=== PATIENT | female | born 1975 | race Caucasian/White ===

== ENCOUNTER → 2021-09-01 16:50 | Outpatient (BNVA) | payer MEDICAID, SELFPAY | PROVIDERS: Visit Provider Family Medicine | DX: Z87.898 Personal history of other specified conditions (principal); K22.9 Disease of esophagus, unspecified; E11.42 Type 2 diabetes mellitus with diabetic polyneuropathy; E78.5 Hyperlipidemia, unspecified; I10 Essential (primary) hypertension; M79.7 Fibromyalgia | CPT/HCPCS: 80053; 80061; 83036; 83721; 84443; 85025 ==

== ENCOUNTER → 2021-10-15 08:57 | Outpatient (BNVA) | payer MEDICARE, SELFPAY | PROVIDERS: Visit Provider Surgery | DX: Z20.822 Contact with and (suspected) exposure to COVID-19 (principal); Z01.812 Encounter for preprocedural laboratory examination | CPT/HCPCS: 87635 ==

== ENCOUNTER 2021-10-20 06:00 | Day surgery (SDC) | payer MEDICARE, SELFPAY ==
[2021-10-15 11:49] VITALS: BMI 29.0
[2021-10-20 06:18] VITALS: BP 156/116; PULSE 86; RESP 18; O2SAT 100
[2021-10-20] MEDS: sodium chloride 0.9% 1,000 ML 30 ML IV (06:30)
--- NOTE | 2021-10-20 06:33 | P.ANESASSM_ITS ---
Pre-Anesthetic Assessment Height/Weight: Height 1.68 m Weight 81.647 kg Pulse Resp BP Pulse Ox 86 18 156/116 100 10/20/21 06:18 10/20/21 06:18 10/20/21 06:18 10/20/21 06:18 Preop Diagnosis: upper gi symptoms Operation Date: 10/20/21 07:00 Proposed Procedures p EGD/Colon 68714 R07.9(Not Applicable) - Federico Palomino MD s Colonoscopy 13242 K63.5(Not Applicable) - Federico Palomino MD Familial anesthetic complications: none Last intake: Intake Last Liquid Date 10/19/21 Last Liquid Time 19:00 Last Solid Date 10/18/21 Last Solid Time 06:30 Social No alcohol and No tobacco Airway Submandibular: within normal limits Mallampati: Class II Dentition: false Pulmonary Asthma CV/HEM Hypertension None reported Hepatic None reported GI Gastroesophageal Reflux Disease post gastric bypass 2016 Metabolic Diabetes Mellitus and Hyperlipidemia [facility] [place] Fibromyalgia Neuropsych Headache Anesthetic Plan ASA status: 3 Anesthesia: MAC Medications/Allergies Home Medications Medication Instructions Recorded Confirmed Last Taken Type dicyclomine 20 mg tablet 20 mg PO QID 09/01/21 10/20/21 10/20/21 History lisinopril 20 mg tablet 20 mg PO DAILY #30 tab 09/01/21 10/20/21 10/20/21 Rx metoprolol tartrate 25 mg tablet 25 mg PO BID 09/01/21 10/20/21 10/20/21 History milnacipran 12.5 mg (5)-25 See Rx Instructions PO PER PKG DIR 09/01/21 10/20/21 10/20/21 Rx mg(8)-50mg(42) tablets in a dose #55 ea pack (Savella) rosuvastatin 20 mg tablet 20 mg PO DAILY 09/01/21 10/20/21 10/19/21 History sucralfate 1 gram tablet (Carafate) 1 g PO QID #120 tab 09/01/21 10/20/21 10/20/21 Rx fenofibrate 160 mg tablet 160 mg PO DAILY #30 tab 09/08/21 10/20/21 10/19/21 Rx metformin 1,000 mg tablet 1,000 mg PO BID #60 tab 10/05/21 10/20/21 10/20/21 Rx omeprazole 40 mg capsule,delayed 40 mg PO BID #60 cap 10/05/21 10/20/21 10/19/21 Rx release milnacipran 50 mg tablet (Savella) 50 mg PO BID #60 tab 10/06/21 10/20/21 10/20/21 Rx Allergies Allergy/AdvReac Type Severity Reaction Status Date / Time pregabalin [From Lyrica] Allergy Severe anaphylaxis Verified 10/20/21 06:14 amitriptyline Allergy Mild hives Verified 10/20/21 06:14 gabapentin Allergy Mild hives Verified 10/20/21 06:14 methocarbamol [From Robaxin] Allergy Mild hives Verified 10/20/21 06:14 morphine Allergy Mild hives Verified 10/20/21 06:14 ferric carboxymaltose Allergy rapid Verified 10/20/21 06:14 heart rate, difficulty breathing sulfamethoxazole AdvReac Intermediate vomiting Verified 10/20/21 06:14 [From Bactrim] trimethoprim [From Bactrim] AdvReac Intermediate vomiting Verified 10/20/21 06:14 Current Medications Generic Name Dose Route Start Last Admin Trade Name Freq PRN Reason Stop Dose Admin Sodium Chloride 1,000 mls @ 30 mls/hr 10/20/21 06:15 10/20/21 06:30 Sodium Chloride 0.9% IV 10/21/21 06:14 30 mls/hr .Q24H CRISTIANA Administration PFSH Anesthesia Medical History (Updated 09/14/21 @ 12:08 by Federico Palomino MD) Colon polyps Essential hypertension Fibromyalgia Hyperlipidemia Type 2 diabetes mellitus with diabetic polyneuropathy Surgical History (Updated 09/14/21 @ 12:08 by Federico Palomino MD) History of bilateral carpal tunnel release Right hand 2x, Left hand 3x History of colonoscopy History of decompression of ulnar nerve History of esophagogastroduodenoscopy (EGD) History of gastric bypass History of hysterectomy History of left knee surgery History of lumbar surgery S/P trigger finger release Social History Smoking and tobacco status: never smoked Second hand smoke exposure: No Alcohol intake: never Lives independently: No Household members: spouse Marital status: Current occupational status: employed Current occupation: [employer] Current gender identity: Female Special maye needs: No Data Anesthesia Cardiac Studies: No Data to Display
--- NOTE | 2021-10-20 07:01 | P.HP_ITS ---
Same Day Surgery H&P Indication for Procedure/HPI DATE OF PROCEDURE: October 20, 2021 CHIEF COMPLAINT/INDICATIONFOR SURGICAL PROCEDURE: screening PREOP DIAGNOSIS: upper gi symptoms PLANNED PROCEDURE: Operation Date: 10/20/21 07:00 Proposed Procedures p EGD/Colon 86983 R07.9(Not Applicable) - Federico Palomino MD s Colonoscopy 61923 K63.5(Not Applicable) - Federico Palomino MD Medications/Allergies* Home Medications Medication Instructions Recorded Confirmed Type dicyclomine 20 mg tablet 20 mg PO QID 09/01/21 10/20/21 History metoprolol tartrate 25 mg tablet 25 mg PO BID 09/01/21 10/20/21 History rosuvastatin 20 mg tablet 20 mg PO DAILY 09/01/21 10/20/21 History Allergies/Adverse Reactions Allergy/AdvReac Type Severity Reaction Status Date / Time pregabalin [From Lyrica] Allergy Severe anaphylaxis Verified 10/20/21 06:14 amitriptyline Allergy Mild hives Verified 10/20/21 06:14 gabapentin Allergy Mild hives Verified 10/20/21 06:14 methocarbamol [From Robaxin] Allergy Mild hives Verified 10/20/21 06:14 morphine Allergy Mild hives Verified 10/20/21 06:14 ferric carboxymaltose Allergy rapid Verified 10/20/21 06:14 heart rate, difficulty breathing sulfamethoxazole AdvReac Intermediate vomiting Verified 10/20/21 06:14 [From Bactrim] trimethoprim [From Bactrim] AdvReac Intermediate vomiting Verified 10/20/21 06:14 Current Medications: Generic Name Dose Route Start Last Admin Trade Name Freq PRN Reason Stop Dose Admin Sodium Chloride 1,000 mls @ 30 mls/hr 10/20/21 06:15 10/20/21 06:30 Sodium Chloride 0.9% IV 10/21/21 06:14 30 mls/hr .Q24H CRISTIANA Administration Pertinent History/Comorbid Conditions* Medical History (Updated 09/14/21 @ 12:08 by Federico Palomino MD) Colon polyps Essential hypertension Fibromyalgia Hyperlipidemia Type 2 diabetes mellitus with diabetic polyneuropathy Surgical History (Updated 09/14/21 @ 12:08 by Federico Palomino MD) History of bilateral carpal tunnel release Right hand 2x, Left hand 3x History of colonoscopy History of decompression of ulnar nerve History of esophagogastroduodenoscopy (EGD) History of gastric bypass History of hysterectomy History of left knee surgery History of lumbar surgery S/P trigger finger release Social History Smoking and tobacco status: never smoked Second hand smoke exposure: No Alcohol intake: never Lives independently: No Household members: spouse Marital status: Current occupational status: employed Current occupation: [employer] Current gender identity: Female Special maye needs: No Pertinent Exam Findings alert, oriented x 3 and regular rate & rhythm Recommendations Surgery/Procedure today Coding Level of Care Code Acute Event Sales Representative for Virla Zavala
[2021-10-20 07:26] VITALS: BP 120/79; PULSE 78; RESP 12; TEMP 36.2; O2SAT 98
[2021-10-20 07:40] VITALS: BP 132/84; PULSE 79; RESP 18; O2SAT 99
--- NOTE | 2021-10-20 08:48 | ANE.PACU2 ---
Inpatient post-anesthesia follow up: Airway intact: Yes Vital signs: Temperature 97.1 F Pulse Rate 79 Respiratory Rate 18 Blood Pressure 132/84 Pulse Oximetry 99 Oxygen Delivery Me thod Room Air Oxygen Flow Rate 3 Fraction of Inspir ed Oxygen Hydration adequate: Yes Nausea and vomiting: No Pain level: 1 Mental status: Baseline
== END 2021-10-20 07:58 | disposition home or self-care (01) ==
PROVIDERS: PCP Family Medicine; Visit Provider Surgery
PROC: 0DJ08ZZ Inspection of Upper Intestinal Tract, Via Natural or Artificial Opening Endoscopic (ICD-10-PCS; CPT 43235; principal; 2021-10-20 07:00)
PROC: 0DJD8ZZ Inspection of Lower Intestinal Tract, Via Natural or Artificial Opening Endoscopic (ICD-10-PCS; CPT 45378; 2021-10-20 07:00)
DX: Z12.11 Encounter for screening for malignant neoplasm of colon (principal); D12.4 Benign neoplasm of descending colon; D12.3 Benign neoplasm of transverse colon; K57.30 Diverticulosis of large intestine without perforation or abscess without bleeding; R07.9 Chest pain, unspecified; I10 Essential (primary) hypertension; M79.7 Fibromyalgia; E78.5 Hyperlipidemia, unspecified; E11.42 Type 2 diabetes mellitus with diabetic polyneuropathy; Z98.84 Bariatric surgery status; J45.909 Unspecified asthma, uncomplicated; K21.9 Gastro-esophageal reflux disease without esophagitis; E11.9 Type 2 diabetes mellitus without complications
CPT/HCPCS: 45380; 88305; J2704; J7030

== ENCOUNTER → 2021-11-30 12:25 | Outpatient (BNVA) | payer MEDICARE, SELFPAY | PROVIDERS: PCP Family Medicine; Visit Provider Family Medicine | DX: L65.9 Nonscarring hair loss, unspecified (principal); R53.83 Other fatigue; Z86.2 Personal history of diseases of the blood and blood-forming organs and certain disorders involving the immune mechanism; R10.9 Unspecified abdominal pain | CPT/HCPCS: 82306; 82607; 83540; 84443; 85025 ==

== ENCOUNTER 2021-12-06 06:36 | Outpatient (CLI) | payer MEDICARE, SELFPAY ==
--- NOTE | 2021-12-06 07:00 | US_ITS ---
WS: [id number] RIGHT UPPER QUADRANT ULTRASOUND HISTORY: R10.13 - Epigastric pain COMPARISON: None available. Liver: 18.9 cm in length. Moderately enlarged liver. Moderate coarse echotexture throughout and dong es of hepatic steatosis. No bile duct dilatation is evident. Portal Vein: Normal hepatopetal flow with monophasic waveform. Gallbladder: Normally distended gallbladder with no stones or wall thickening. CBD: 0.5 cm Pancreas: Completely obscured by bowel gas. Right kidney: 12.3 cm in length. Normal size and echogenicity. No hydronephrosis or mass. Aorta and IVC: Unremarkable abdominal aorta and IVC. No ascites. US/US gall bladder 37736 IMPRESSION: 1. Normal gallbladder. 2. No bile duct dilatation. 3. Moderate hepatomegaly and hepatic steatosis.
== END 2021-12-06 06:37 | disposition home or self-care (01) ==
LOC: RAD 06:37
PROVIDERS: PCP Family Medicine; Visit Provider Surgery
DX: R10.13 Epigastric pain (principal); R16.0 Hepatomegaly, not elsewhere classified; K76.0 Fatty (change of) liver, not elsewhere classified
CPT/HCPCS: 76705

== ENCOUNTER → 2022-01-06 08:31 | Outpatient (BNVA) | payer MEDICARE, SELFPAY | PROVIDERS: PCP Family Medicine; Visit Provider Family Medicine Adult Medicine | DX: R43.2 Parageusia (principal); B34.9 Viral infection, unspecified; J40 Bronchitis, not specified as acute or chronic | CPT/HCPCS: 87631; 87635 ==

== ENCOUNTER → 2023-03-14 11:55 | Outpatient (BNVA) | payer OTHER, SELFPAY | PROVIDERS: PCP Family Medicine; Visit Provider Family Medicine | DX: T14.8XXA Other injury of unspecified body region, initial encounter (principal); W57.XXXA Bitten or stung by nonvenomous insect and other nonvenomous arthropods, initial encounter | CPT/HCPCS: 86618; 86666; 86757 ==

== ENCOUNTER → 2023-04-10 10:00 | Outpatient (BNVA) | payer OTHER, SELFPAY | PROVIDERS: PCP Family Medicine; Visit Provider Family Medicine | DX: I10 Essential (primary) hypertension (principal); Z13.29 Encounter for screening for other suspected endocrine disorder; E83.42 Hypomagnesemia; E11.42 Type 2 diabetes mellitus with diabetic polyneuropathy; E55.9 Vitamin D deficiency, unspecified | CPT/HCPCS: 80053; 80061; 82306; 83036; 83735; 84443 ==

== ENCOUNTER → 2023-05-17 09:03 | Outpatient (BNVA) | payer OTHER, SELFPAY | PROVIDERS: PCP Family Medicine; Visit Provider Nurse Practitioner Family | DX: R51.9 Headache, unspecified (principal); Z20.822 Contact with and (suspected) exposure to COVID-19 | CPT/HCPCS: 87426 ==

== ENCOUNTER 2024-09-04 12:15 | Emergency (ER) | payer OTHER, SELFPAY ==
[2024-09-04 12:37] VITALS: BP 142/95; PULSE 110; TEMP 36.7; O2SAT 98; BMI 29.5
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
[2024-09-04 14:06] VITALS: BP 144/95; PULSE 100; RESP 16; O2SAT 98
[2024-09-04] MEDS: HYDROcodone-acetaminophen 5-325 mg Tablet 1 TAB PO (14:06)
[2024-09-04 14:12] VITALS: BP 144/95; PULSE 100; RESP 16; O2SAT 98
== END 2024-09-04 14:12 | disposition home or self-care (01) ==
PROVIDERS: Emergency Provider Emergency Medicine; PCP Family Medicine
DX: S09.8XXA Other specified injuries of head, initial encounter (principal); Z79.84 Long term (current) use of oral hypoglycemic drugs; Z87.891 Personal history of nicotine dependence; E11.42 Type 2 diabetes mellitus with diabetic polyneuropathy; I10 Essential (primary) hypertension; E78.5 Hyperlipidemia, unspecified; Y04.2XXA Assault by strike against or bumped into by another person, initial encounter
CPT/HCPCS: 99283

== ENCOUNTER → 2024-09-19 13:47 | Outpatient (BNVA) | payer OTHER, SELFPAY | PROVIDERS: PCP Family Medicine; Visit Provider Family Medicine | DX: E11.9 Type 2 diabetes mellitus without complications (principal); K91.2 Postsurgical malabsorption, not elsewhere classified; D64.9 Anemia, unspecified | CPT/HCPCS: 80053; 80061; 82306; 82607; 82728; 83036; 83721; 84443; 85025 ==

== ENCOUNTER 2024-11-19 07:36 | Outpatient (CLI) | payer OTHER, SELFPAY ==
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
== END 2024-11-19 07:37 | disposition home or self-care (01) ==
PROVIDERS: PCP Family Medicine; Visit Provider Family Medicine
DX: S00.93XA Contusion of unspecified part of head, initial encounter (principal); X58.XXXA Exposure to other specified factors, initial encounter; G31.89 Other specified degenerative diseases of nervous system; H74.8X9 Other specified disorders of middle ear and mastoid, unspecified ear
CPT/HCPCS: 70450

== ENCOUNTER → 2025-01-20 11:02 | Outpatient (BNVA) | payer OTHER, SELFPAY | PROVIDERS: PCP Family Medicine; Visit Provider Physician Assistant | DX: M65.341 Trigger finger, right ring finger (principal) | CPT/HCPCS: 73130 ==

== ENCOUNTER → 2025-03-20 12:46 | Outpatient (BNVA) | payer OTHER, SELFPAY | PROVIDERS: PCP Family Medicine; Visit Provider Family Medicine | DX: I10 Essential (primary) hypertension (principal); E78.5 Hyperlipidemia, unspecified; E11.42 Type 2 diabetes mellitus with diabetic polyneuropathy | CPT/HCPCS: 80053; 80061; 82607; 83036 ==

== ENCOUNTER → 2025-07-03 11:55 | Outpatient (BNVA) | payer OTHER, SELFPAY | PROVIDERS: PCP Family Medicine; Visit Provider Family Medicine | DX: R53.83 Other fatigue (principal); E11.42 Type 2 diabetes mellitus with diabetic polyneuropathy | CPT/HCPCS: 80048; 80061; 82306; 82607; 83036; 84443; 85025 ==

== ENCOUNTER → 2025-07-24 14:54 | Outpatient (BNVA) | payer OTHER, SELFPAY | PROVIDERS: PCP Family Medicine; Visit Provider Family Medicine | DX: D64.9 Anemia, unspecified (principal); R25.2 Cramp and spasm; M79.7 Fibromyalgia | CPT/HCPCS: 80053; 82270; 82274; 82607; 82728; 82746; 83540; 83735; 84443; 85025; 86038 ==